=== PATIENT | male | born 1940 | race Caucasian/White ===

== ENCOUNTER → 2022-08-26 10:27 | Outpatient (CLI) | payer MEDICARE, OTHER, SELFPAY ==
--- NOTE | 2022-08-26 | DI.US.S_ITS ---
PROCEDURE: US CAROTID DOPPLER BI INDICATIONS: TRANSIENT ISCHEMIC ATTACK TECHNIQUE: Color and pulse Doppler interrogation was performed of both carotid systems, with image documentation and velocity measurements. COMPARISON: [facility], , MR HEAD/BRAIN WO CON, 08/26/2022, 11:54. FINDINGS: Stenosis calculations are based on SRU (Society of Radiologists in Ultras[employer]) criteria. The flow velocities and the arterial waveforms are normal within both carotid arterial systems. Mild atherosclerotic plaque is seen on both sides. The estimated degree of internal carotid artery stenosis is less than 50%. Antegrade flow is confirmed within both vertebral arteries. IMPRESSION: No hemodynamically significant stenosis is seen. Dictated by: Dave Branham M.D. on 08/26/2022 at 13:46 Approved by: Dave Branham M.D. on 08/26/2022 at 13:47
--- NOTE | 2022-08-26 | DI.ECHO.S_ITS ---
[facility]---------+ [facility] +---------+ : : [address] : [place] : : : : [id number] : : : : Phone: [phone]---------+ Echocardiogram Report + + :Name: FANY HEIN Study Date: 08/26/2022 Height: 69 in : :[facility] ReadingLocation: Weight: 215 lb : : Gender: Male BSA: 2.1 m2 : :: 1940 Age: 82 yrs BP: 143/85 mmHg: :Reason For Study: TIA : :Ordering Physician: HORACIO, : :MEMO Stokes Performed By: Connie Sutton : :Referring: MEMO LEONARD : + + Interpretation Summary The left ventricle is normal in size. There is mild concentric left ventricular hypertrophy. There is no LV thrombus. The ejection fraction is estimated to be 65-70%. The right ventricle is borderline dilated. The right ventricular systolic function is normal. No significant valvular pathology seen. The aortic arch is moderately enlarged. 4.1 cm in diameter. Mild atherosclerotic plaque(s) in the aortic arch. Procedure: A two-dimensional transthoracic echocardiogram with color flow and Doppler was performed. The study quality was technically adequate. There is no prior echocardiogram noted for this patient. The patient was in sinus rhythm with heart rates between 78-86 bpm during the exam. Left Ventricle: The left ventricle is normal in size. There is mild concentric left ventricular hypertrophy. There is no thrombus. The ejection fraction is estimated to be 65-70%. There are no focal wall motion abnormalities. MV E/A: 0.68 Med Peak E' Ramos: 3.3 cm/sec E/E' med: 21.0. Right Ventricle: The right ventricle is borderline dilated. The right ventricular systolic function is normal. Atria: The left atrial size is normal. Right atrial size is normal. There is no Doppler evidence for an interatrial shunt. Mitral Valve: There is mild mitral annular calcification. There is trace mitral regurgitation. Aortic Valve: The aortic valve is trileaflet. The aortic valve is mildly calcified. The aortic valve is not well visualized. There is no aortic valve stenosis. No aortic regurgitation is present. Tricuspid Valve: The tricuspid valve is normal in structure and function. There is trace tricuspid regurgitation. Pulmonary artery pressures cannot be estimated because of the lack of a measurable TR jet velocity. Pulmonic Valve: The pulmonic valve is not well seen, but is grossly normal. There is mild pulmonic regurgitation. Great Vessels: The aortic root is normal size. The dimensions of the ascending aorta are normal. The aortic arch is moderately enlarged. Mild atherosclerotic plaque(s) in the aortic arch. The inferior vena cava was not visualized. Pericardium/ Pleura There is no pericardial effusion. There is an anterior echo-free space consistent with a fat pad. There is no pleural effusion. MMode/2D Measurements & Calculations LVIDd: 4.2 cm LVOT diam: 2.4 cm LVIDs: 3.1 cm Ao root diam: 3.6 cm FS: 26.4 % asc Aorta Diam: 3.8 cm IVSd: 1.3 cm Ao Arch Diam (Prox Trans): 4.1 cm LVPWd: 1.2 cm LV alegria. diameter/BSA (cm/m^2): 2.0 LV sys. diameter/BSA (cm/m^2): 1.5 LA A2 area: 19.2 cm2 RA long axis: 5.5 cm LA A4 area: 17.4 cm2 RA area: 16.3 cm2 LA length (vol): 5.2 cm RA vol: 40.9 ml LA vol: 54.3 ml RA : 19.2 ml/m2 LA vol index: 25.5 ml/m2 RVD1 (basal): 4.1 cm RVD2 (mid): 3.2 cm TAPSE: 1.8 cm Doppler Measurements & Calculations Ao V2 max: 138.5 cm/sec LVOT Max Ramos: 102.8 cm/sec Ao V2 mean: 100.6 cm/sec LV V1 max P.2 mmHg Ao max P.7 mmHg LV V1 VTI: 23.9 cm Ao mean P.4 mmHg MARILIA(I,D): 4.0 cm2 Ao V2 VTI: 27.2 cm MARILIA(V,D): 3.4 cm2 sev ratio: 0.88 MARILIA indexed to BSA (cm^2/m^2): 1.9 MV E max ramos: 69.1 cm/sec PA V2 max: 104.1 cm/sec MV A max ramos: 102.0 cm/sec PA V2 mean: 68.1 cm/sec MV E/A: 0.68 PA mean P.1 mmHg Med Peak E' Ramos: 3.3 cm/sec E/E' med: 21.0 Lat Peak E' Ramos: 9.4 cm/sec E/E' lat: 7.3 E/e' average: 14.2 MV dec time: 0.21 sec SV(LVOT): 109.3 ml Reading Physician:04:17 PM
--- NOTE | 2022-08-26 12:09 | DI.MRI.S_ITS ---
PROCEDURE: MR HEAD/BRAIN WO CON INDICATIONS: Transient cerebral ischemic attack TECHNIQUE: Non-contrast axial T1 spin echo, axial T2 fast spin echo, sagittal and axial FLAIR, coronal T2 fast spin echo, axial gradient echo, axial diffusion and ADC through the brain. COMPARISON: None. FINDINGS: Image quality: Excellent. CSF spaces: Ventricles appear symmetric in size and shape. Basal cisterns are patent. No extra-axial fluid collections. Brain: No intracranial bleeds or mass effects. There is cerebral volume loss for age. There are periventricular and deep white matter chronic small vessel ischemic changes. Brainstem appears normal. Diffusion-weighted images show no acute ischemic insults. No chronic ischemic insults. Normal intravascular flow voids are present. Skull and face: Calvarial bone marrow is normal in signal. Orbits are normal. Sinuses: Sinuses and mastoids are clear. IMPRESSION: No findings of acute or subacute infarction can be seen. Note is made of age-appropriate brain parenchymal volume loss and chronic small vessel ischemic changes. Dictated by: Dave Branham M.D. on 08/26/2022 at 12:02 Approved by: Dave Branham M.D. on 08/26/2022 at 12:06
== END ==
PROVIDERS: PCP Family Medicine; Referring Provider Family Medicine; Visit Provider Family Medicine
DX: G45.9 Transient cerebral ischemic attack, unspecified (principal); I34.81 Nonrheumatic mitral (valve) annulus calcification; I37.1 Nonrheumatic pulmonary valve insufficiency; I77.89 Other specified disorders of arteries and arterioles; I70.0 Atherosclerosis of aorta
CPT/HCPCS: 70551; 93306; 93880